=== PATIENT | female | born 1935 ===

== ENCOUNTER 2019-01-09 18:27 | Observation (INO) | payer MEDICARE ==
[2019-01-09 20:44] LABS: BASO % 0.6 % (0.0-2.0); EOS # 0.2 K/uL (0.0-0.7); EOS % 3.4 % (0.0-4.0); HEMOGLOBIN 11.6 g/dL (12.0-16.0); LYMPH # 1.2 K/uL (1.0-4.3); LYMPH % 17.8 % (20.0-40.0); MEAN CELL VOLUME 89.9 fl (81.0-99.0); MEAN CORPUSCULAR HGB CONC 33.3 g/dL (33.0-37.0); MEAN PLATELET VOLUME 8.1 fl (7.2-11.7); MONO # 0.7 K/uL (0.0-0.8); MONO % 10.5 % (0.0-10.0); NEUT # 4.7 K/uL (1.8-7.0); NEUT % 67.7 % (50.0-75.0); NRBC % 0.1 % (0.0-0.0); RBC 3.88 Mil/uL (3.80-5.20); RED CELL DISTRIBUTION WIDTH 13.1 % (11.5-14.5)
[2019-01-09 20:52] LABS: ALBUMIN 4.3 g/dL (3.5-5.0); ALT/SGPT 18 U/L (9-52); AST/SGOT 35 U/L (14-36); BLOOD UREA NITROGEN 31 mg/dl (7-17); CALCIUM 9.9 mg/dL (8.4-10.2); GFR NON-AFRICAN AMERICAN 53
[2019-01-09 21:00] LABS: INR 0.9; PROTHROMBIN TIME 10.1 Seconds (9.8-13.1)
[2019-01-09 21:03] LABS: PARTIAL THROMBOPLASTIN TIME 35.7 Seconds (25.6-37.1)
--- NOTE | 2019-01-09 21:04 | ED PDOC ---
HPI: Chest Pain Time Seen by Provider: 01/09/19 19:13 Chief Complaint (Nursing): Chest Pain Chief Complaint (Provider): Chest Pain History Per: Patient History/Exam Limitations: no limitations Onset/Duration Of Symptoms: Days (x1 day) Current Symptoms Are (Timing): Still Present Pain Scale Rating Of: 5 Additional Complaint(s): Patient is a 83 year old [place]oth[place] female with a past medical history of HTN and psoriasis, who presents to the emergency department complaining of chest pain, onset x1 day. Patient states that she has generalized chest pain with no vomiting, sweating, cough, fever or shortness of breath. Combat Control: Demetris Dorado Past Medical History Reviewed: Historical Data, Nursing Documentation, Vital Signs Vital Signs: Last Vital Signs Temp 97.7 F 01/09/19 18:30 Pulse 71 01/09/19 19:17 Resp 16 01/09/19 19:17 BP 131/72 01/09/19 19:17 Pulse Ox 100 01/09/19 19:17 - Medical History PMH: HTN, Hyperlipidemia Other PMH: psoriasis - Surgical History Surgical History: Appendectomy (1960s) - Family History Family History: States: Unknown Family Hx - Social History Current smoker - smoking cessation education provided: No Ex-Smoker (has not smoked in the last 12 months): No Alcohol: None Drugs: Denies - Home Medications Home Medications: Ambulatory Orders Medication Instructions Recorded Amlodipine/Valsartan [Exforge 1 tab PO DAILY 03/23/16 5-160 mg Tablet] Cholecalciferol (Vitamin D3) 2,000 unit PO DAILY 03/23/16 [Vitamin D3] Cyanocobalamin [Vitamin B12 1000 2 tab PO DAILY 03/23/16 mcg Tab] Etanercept [Enbrel] 50 mg SQ QWK 03/23/16 Folic Acid 1 tab PO TID 03/23/16 Methotrexate 1 tab PO QWK 03/23/16 Rosuvastatin Calcium [Crestor] 1 tab PO DAILY 03/23/16 metFORMIN [glucOPHAGE] 1 tab PO DAILY 03/23/16 - Allergies Allergies/Adverse Reactions: Allergies Allergy/AdvReac Type Severity Reaction Status Date / Time No Known Allergies Allergy Verified 01/09/19 18:33 Review of Systems ROS Statement: Except As Marked, All Systems Reviewed And Found Negative Constitutional: Negative for: Fever, Sweats Cardiovascular: Positive for: Chest Pain Respiratory: Negative for: Cough, Shortness of Breath Physical Exam - Reviewed Nursing Documentation Reviewed: Yes Vital Signs Reviewed: Yes - Physical Exam Appears: Positive for: Non-toxic, No Acute Distress Head Exam: Positive for: ATRAUMATIC, NORMOCEPHALIC Skin: Positive for: Normal Color, Warm, Dry Eye Exam: Positive for: Normal appearance, EOMI, PERRL ENT: Positive for: Normal ENT Inspection Neck: Positive for: Normal, Painless ROM, Supple Cardiovascular/Chest: Positive for: Regular Rate, Rhythm. Negative for: Murmur Respiratory: Positive for: Normal Breath Sounds. Negative for: Respiratory Distress Gastrointestinal/Abdominal: Positive for: Normal Exam, Soft. Negative for: Tenderness Back: Positive for: Normal Inspection. Negative for: L CVA Tenderness, R CVA Tenderness, Vertebral Tenderness Extremity: Positive for: Normal ROM. Negative for: Pedal Edema, Deformity Neurologic/Psych: Positive for: Alert, Oriented. Negative for: Motor/Sensory Deficits - Laboratory Results Result Diagrams: 01/09/19 19:55 01/09/19 19:55 Lab Results: PT 10.1 Seconds (9.8-13.1) 01/09/19 19:55 INR 0.9 01/09/19 19:55 Total Bilirubin 0.4 mg/dl (0.2-1.3) 01/09/19 19:55 AST 35 U/L (14-36) 01/09/19 19:55 ALT 18 U/L (9-52) 01/09/19 19:55 Alkaline Phosphatase 82 U/L (38-126) 01/09/19 19:55 Total Protein 8.5 G/DL (6.3-8.2) H 01/09/19 19:55 Albumin 4.3 g/dL (3.5-5.0) 01/09/19 19:55 Globulin 4.2 gm/dL (2.2-3.9) H 01/09/19 19:55 Albumin/Globulin Ratio 1.0 (1.0-2.1) 01/09/19 19:55 - ECG O2 Sat by Pulse Oximetry: 100 (RA) Pulse Ox Interpretation: Normal Medical Decision Making Medical Decision Making: Time: 183 Impression: 83 year old [place] female presenting with chest pain. Will order labs, EKG and chest xray Plan: --EKG --CMP --Troponin I --CBC with differential --PT --PT --Chest xray --Saline lock Time: 2131 --Labs and chest xray reviewed and revealed no clinically significant abnormalities. --Patient will be placed in chest pain observation as discussed with Dr. Villatoro. Scribe Attestation: Documented by Cash Kong, acting as a scribe for Kana De La Torre MD. Provider Scribe Attestation: All medical record entries made by the Scribe were at my direction and personally dictated by me. I have reviewed the chart and agree that the record accurately reflects my personal performance of the history, physical exam, medical decision making, and the department course for this patient. I have also personally directed, reviewed, and agree with the discharge instructions and disposition. Disposition - Clinical Impression Clinical Impression: Chest pain - Disposition Disposition Time: 21:30 Condition: FAIR
[2019-01-10 05:51] VITALS: RESP 18
--- NOTE | 2019-01-10 08:03 | CARD ---
APPROVED REPORT Date of service: 01/10/2019 EKG Measurement Heart [id number] <Conclusion> Normal sinus rhythm Low voltage QRS Borderline ECG
[2019-01-10] MEDS ORDERED: Enoxaparin 40 mg Syringe SC SCH (09:00)
[2019-01-10] MEDS ORDERED: Cholecalciferol 1,000 INTLU TAB PO SCH (09:00)
[2019-01-10 09:12] LABS: HEMOGLOBIN 10.7 g/dL (12.0-16.0); MEAN CELL VOLUME 89.8 fl (81.0-99.0); MEAN CORPUSCULAR HEMOGLOBIN 30.1 pg (27.0-31.0); MEAN CORPUSCULAR HGB CONC 33.5 g/dL (33.0-37.0); RBC 3.57 Mil/uL (3.80-5.20); RED CELL DISTRIBUTION WIDTH 12.9 % (11.5-14.5); WHITE BLOOD COUNT 6.2 K/uL (4.8-10.8)
[2019-01-10 09:35] LABS: LDL CHOLESTEROL 156 mg/dL (0-129)
[2019-01-10 10:13] LABS: ALB/GLOB RATIO 0.8 (1.0-2.1); ALBUMIN 3.3 g/dL (3.5-5.0); ALT/SGPT 6 U/L (9-52); AST/SGOT 32 U/L (14-36); BLOOD UREA NITROGEN 28 mg/dl (7-17); CALCIUM 9.5 mg/dL (8.4-10.2); GFR NON-AFRICAN AMERICAN > 60; HDL CHOLESTEROL 44 MG/DL (30-70)
--- NOTE | 2019-01-10 11:40 | RAD ---
Date of service: 01/09/2019 HISTORY: chest pain COMPARISON: No prior. FINDINGS: LUNGS: The lungs are well inflated and clear. PLEURA: No pleural effusions or pneumothorax. CARDIOVASCULAR: The heart is normal in size. There are aortic atherosclerotic calcifications present. OSSEOUS STRUCTURES: There an S-shaped scoliosis in the thoracolumbar spine. VISUALIZED UPPER ABDOMEN: Normal. OTHER FINDINGS: None. IMPRESSION: No active pulmonary disease.
[2019-01-10 15:56] VITALS: BP 96/53; PULSE 77; TEMP 98.6; O2SAT 94
--- NOTE | 2019-01-10 16:53 | CP.PCM.CON ---
Past Patient History - Infectious Disease Hx of Infectious Diseases: None - Past Medical History & Family History Past Medical History?: Yes - Past Social History Smoking Status: Never Smoked - CARDIAC Hx Cardiac Disorders: Yes Hx Hypercholesterolemia: Yes Hx Hypertension: Yes - PULMONARY Hx Respiratory Disorders: No - NEUROLOGICAL Hx Neurological Disorder: No - HEENT Hx HEENT Problems: No - RENAL Hx Chronic Kidney Disease: No - ENDOCRINE/METABOLIC Hx Endocrine Disorders: Yes Hx Diabetes Mellitus Type 2: Yes (not on any meds anymore) - HEMATOLOGICAL/ONCOLOGICAL Hx Blood Disorders: No - INTEGUMENTARY Hx Dermatological Problems: Yes Hx Psoriasis: Yes - MUSCULOSKELETAL/RHEUMATOLOGICAL Hx Musculoskeletal Disorders: No Hx Falls: No - GASTROINTESTINAL Hx Gastrointestinal Disorders: No - GENITOURINARY/GYNECOLOGICAL Hx Genitourinary Disorders: No - PSYCHIATRIC Hx Psychophysiologic Disorder: No Hx Substance Use: No - SURGICAL HISTORY Hx Surgeries: Yes Hx Appendectomy: Yes (1960s) Hx Thyroidectomy: Yes - ANESTHESIA Hx Anesthesia: Yes Hx Anesthesia Reactions: No Hx Malignant Hyperthermia: No Has any member of the family had a problem w/ anesthesia?: No Meds Allergies/Adverse Reactions: Allergies Allergy/AdvReac Type Severity Reaction Status Date / Time No Known Allergies Allergy Verified 01/09/19 18:33 - Medications Medications: Current Medications Amlodipine Besylate (Norvasc) 5 mg PO DAILY [facility] Last Admin: 01/10/19 09:38 Dose: 5 mg Atorvastatin Calcium (Lipitor) 10 mg PO DAILY [facility] Last Admin: 01/10/19 09:38 Dose: 10 mg Cholecalciferol (Vitamin D) 2,000 intlu PO DAILY [facility] Last Admin: 01/10/19 09:38 Dose: 2,000 intlu Cyanocobalamin (Vitamin B12 1000 Mcg Tab) 2,000 mcg PO DAILY [facility] Last Admin: 01/10/19 09:38 Dose: 2,000 mcg Enoxaparin Sodium (Lovenox) 40 mg SC DAILY [facility]; Protocol Last Admin: 01/10/19 09:38 Dose: 40 mg Losartan Potassium (Cozaar) 100 mg PO DAILY [facility] Last Admin: 01/10/19 09:38 Dose: 100 mg Results - Vital Signs Recent Vital Signs: Last Vital Signs Temp 98.6 F 01/10/19 15:54 Pulse 77 01/10/19 15:54 Resp 18 01/10/19 15:54 BP 96/53 L 01/10/19 15:54 Pulse Ox 94 L 01/10/19 15:54 - Labs Result Diagrams: 01/10/19 08:40 01/10/19 08:40 Labs: Laboratory Results - last 24 hr 01/09/19 01/09/19 01/09/19 19:55 19:55 19:55 WBC 7.0 RBC 3.88 Hgb 11.6 L Hct 34.9 MCV 89.9 D MCH 30.0 MCHC 33.3 RDW 13.1 Plt Count 353 D MPV 8.1 Neut % (Auto) 67.7 Lymph % (Auto) 17.8 L [place] % (Auto) 10.5 H Eos % (Auto) 3.4 Baso % (Auto) 0.6 Neut # (Auto) 4.7 Lymph # (Auto) 1.2 [place] # (Auto) 0.7 Eos # (Auto) 0.2 Baso # (Auto) 0.0 PT 10.1 INR 0.9 APTT 35.7 Sodium 139 Potassium 3.6 Chloride 97 L Carbon Dioxide 29 Anion Gap 17 BUN 31 H Creatinine 1.0 Est GFR ( Amer) > 60 Est GFR (Non-Af Amer) 53 Random Glucose 122 H Calcium 9.9 Total Bilirubin 0.4 AST 35 ALT 18 Alkaline Phosphatase 82 Troponin I < 0.0120 Total Protein 8.5 H Albumin 4.3 Globulin 4.2 H Albumin/Globulin Ratio 1.0 Triglycerides Cholesterol LDL Cholesterol Direct HDL Cholesterol Thyroxine (T4) TSH 3rd Generation 01/10/19 01/10/19 01/10/19 04:50 08:40 08:40 WBC 6.2 RBC 3.57 L Hgb 10.7 L Hct 32.0 L MCV 89.8 MCH 30.1 MCHC 33.5 RDW 12.9 Plt Count 324 MPV Neut % (Auto) Lymph % (Auto) [place] % (Auto) Eos % (Auto) Baso % (Auto) Neut # (Auto) Lymph # (Auto) [place] # (Auto) Eos # (Auto) Baso # (Auto) PT INR APTT Sodium 138 Potassium 4.3 Chloride 103 Carbon Dioxide 27 Anion Gap 12 BUN 28 H Creatinine 0.9 Est GFR ( Amer) > 60 Est GFR (Non-Af Amer) > 60 Random Glucose 101 Calcium 9.5 Total Bilirubin 0.3 AST 32 ALT 6 L D Alkaline Phosphatase 72 Troponin I < 0.0120 Total Protein 7.5 Albumin 3.3 L D Globulin 4.3 H Albumin/Globulin Ratio 0.8 L Triglycerides 84 Cholesterol 229 H LDL Cholesterol Direct 156 H HDL Cholesterol 44 Thyroxine (T4) 7.10 TSH 3rd Generation 6.63 H 01/10/19 12:40 WBC RBC Hgb Hct MCV MCH MCHC RDW Plt Count MPV Neut % (Auto) Lymph % (Auto) [place] % (Auto) Eos % (Auto) Baso % (Auto) Neut # (Auto) Lymph # (Auto) [place] # (Auto) Eos # (Auto) Baso # (Auto) PT INR APTT Sodium Potassium Chloride Carbon Dioxide Anion Gap BUN Creatinine Est GFR ( Amer) Est GFR (Non-Af Amer) Random Glucose Calcium Total Bilirubin AST ALT Alkaline Phosphatase Troponin I < 0.0120 Total Protein Albumin Globulin Albumin/Globulin Ratio Triglycerides Cholesterol LDL Cholesterol Direct HDL Cholesterol Thyroxine (T4) TSH 3rd Generation
--- NOTE | 2019-01-10 17:52 | CARD ---
APPROVED REPORT Date of service: 01/10/2019 EXAM: Two-dimensional and M-mode echocardiogram with Doppler and color Doppler. Other Information Quality : GoodRhythm : NSR INDICATION Chest Pain 2D DIMENSIONS IVSd1.16 (0.7-1.1cm)LVDd3.95 (3.9-5.9cm) LVOT Diameter1.79 (1.8-2.4cm)PWd0.89 (0.7-1.1cm) IVSs1.46 (0.8-1.2cm)LVDs2.03 (2.5-4.0cm) FS (%) 48.5 %PWs1.56 (0.8-1.2cm) M-Mode DIMENSIONS Left Atrium (MM)4.22 (2.5-4.0cm)IVSd1.16 (0.7-1.1cm) Aortic Root2.91 (2.2-3.7cm)LVDd4.58 (4.0-5.6cm) Aortic Cusp Exc.1.72 (1.5-2.0cm)PWd0.98 (0.7-1.1cm) IVSs1.62 cmFS (%) 55 % LVDs2.06 (2.0-3.8cm)PWs1.47 cm Aortic Valve AoV Peak Bmuggglj277.6cm/sAoV VTI31.3cmAO Peak GR.9mmHg LVOT Peak Rapytevd737.6cm/sLVOT VTI23.72cmAO Mean GR.5mmHg MEG (VMAX)1.50qh4WNP (VTI)1.26cm2 Mitral Valve MV E Zdblhoul20.0cm/sMV DECEL VLHX647pcCV A Ywbdtpxz37.4cm/s MV VYX41liL/A ratio0.8MVA (PHT)3.98cm2 TDI Lateral E' Peak V6.11cm/sMedial E' Peak V8.96cm/sE/Lateral E'12.4 E/Medial E'8.5 Tricuspid Valve TR Peak Rfbbkzrq355su/sRAP PIJOIOEE12seFsSV Peak Gr.25mmHg WTWZ32mbHf LEFT VENTRICLE The left ventricle is normal size. There is normal left ventricular wall thickness. The left ventricular systolic function is normal. The estimated ejection fraction is 55-60% No regional wall motion abnormalities noted.. Transmitral Doppler flow pattern is Grade I-abnormal relaxation pattern. No left ventricle thrombus noted on this study. There is no ventricular septal defect visualized. There is no left ventricular aneurysm. There is no mass noted in the left ventricle. RIGHT VENTRICLE The right ventricle is normal size. There is normal right ventricular wall thickness. The right ventricular systolic function is normal. ATRIA The left atrium is mildly dilated. The right atrium size is normal. The interatrial septum is intact with no evidence for an atrial septal defect. AORTIC VALVE The aortic valve is normal in structure. No aortic regurgitation is present. There is no aortic valvular stenosis. There is no aortic valvular vegetation. MITRAL VALVE The mitral valve is normal in structure. There is no evidence of mitral valve prolapse. There is no mitral valve stenosis. There is trace mitral valve regurgitation noted. TRICUSPID VALVE The tricuspid valve is normal in structure. There is mild tricuspid valve regurgitation noted. RVSP is calculated at 30 mm Hg. There is no tricuspid valve prolapse or vegetation. There is no tricuspid valve stenosis. PULMONIC VALVE The pulmonary valve is normal in structure. There is trace pulmonic valvular regurgitation. There is no pulmonic valvular stenosis. GREAT VESSELS The aortic root is normal in size. The ascending aorta is normal in size. The pulmonary artery is normal. The IVC is normal in size and collapses >50% with inspiration. PERICARDIAL EFFUSION There is no pericardial effusion. There is no pleural effusion. <Conclusion> The estimated ejection fraction is 55-60% Transmitral Doppler flow pattern is Grade I-abnormal relaxation pattern. The left atrium is mildly dilated. There is trace mitral valve regurgitation noted. There is mild tricuspid valve regurgitation noted. RVSP is calculated at 30 mm Hg.
--- NOTE | 2019-01-10 18:49 | CARD ---
APPROVED REPORT Date of service: 01/09/2019 EKG Measurement Heart [id number] <Conclusion> Normal sinus rhythm Normal Electrocardiogram
--- NOTE | 2019-01-11 02:15 | CP.PCM.HP ---
Past Patient History - Infectious Disease Hx of Infectious Diseases: None - Past Medical History & Family History Past Medical History?: Yes - Past Social History Smoking Status: Never Smoked - CARDIAC Hx Cardiac Disorders: Yes Hx Hypercholesterolemia: Yes Hx Hypertension: Yes - PULMONARY Hx Respiratory Disorders: No - NEUROLOGICAL Hx Neurological Disorder: No - HEENT Hx HEENT Problems: No - RENAL Hx Chronic Kidney Disease: No - ENDOCRINE/METABOLIC Hx Endocrine Disorders: Yes Hx Diabetes Mellitus Type 2: Yes (not on any meds anymore) - HEMATOLOGICAL/ONCOLOGICAL Hx Blood Disorders: No - INTEGUMENTARY Hx Dermatological Problems: Yes Hx Psoriasis: Yes - MUSCULOSKELETAL/RHEUMATOLOGICAL Hx Musculoskeletal Disorders: No Hx Falls: No - GASTROINTESTINAL Hx Gastrointestinal Disorders: No - GENITOURINARY/GYNECOLOGICAL Hx Genitourinary Disorders: No - PSYCHIATRIC Hx Psychophysiologic Disorder: No Hx Substance Use: No - SURGICAL HISTORY Hx Surgeries: Yes Hx Appendectomy: Yes (1960s) Hx Thyroidectomy: Yes - ANESTHESIA Hx Anesthesia: Yes Hx Anesthesia Reactions: No Hx Malignant Hyperthermia: No Has any member of the family had a problem w/ anesthesia?: No Meds Home Medications: Home Medication List Medication Instructions Recorded Confirmed Type Cholecalciferol [Vitamin D 1000 IU] 2,000 intlu PO DAILY tab 01/10/19 Rx Losartan [Cozaar] 100 mg PO DAILY tab 01/10/19 Rx Allergies/Adverse Reactions: Allergies Allergy/AdvReac Type Severity Reaction Status Date / Time No Known Allergies Allergy Verified 01/09/19 18:33 Results - Vital Signs Recent Vital Signs: Last Vital Signs Temp 98.6 F 01/10/19 15:54 Pulse 77 01/10/19 15:54 Resp 18 01/10/19 15:54 BP 96/53 L 01/10/19 15:54 Pulse Ox 94 L 01/10/19 15:54 - Labs Result Diagrams: 01/10/19 08:40 01/10/19 08:40 Labs: Laboratory Results - last 24 hr 01/10/19 01/10/19 01/10/19 04:50 08:40 08:40 WBC 6.2 RBC 3.57 L Hgb 10.7 L Hct 32.0 L MCV 89.8 MCH 30.1 MCHC 33.5 RDW 12.9 Plt Count 324 Sodium 138 Potassium 4.3 Chloride 103 Carbon Dioxide 27 Anion Gap 12 BUN 28 H Creatinine 0.9 Est GFR ( Amer) > 60 Est GFR (Non-Af Amer) > 60 Random Glucose 101 Calcium 9.5 Total Bilirubin 0.3 AST 32 ALT 6 L D Alkaline Phosphatase 72 Troponin I < 0.0120 Total Protein 7.5 Albumin 3.3 L D Globulin 4.3 H Albumin/Globulin Ratio 0.8 L Triglycerides 84 Cholesterol 229 H LDL Cholesterol Direct 156 H HDL Cholesterol 44 Thyroxine (T4) 7.10 TSH 3rd Generation 6.63 H 01/10/19 12:40 WBC RBC Hgb Hct MCV MCH MCHC RDW Plt Count Sodium Potassium Chloride Carbon Dioxide Anion Gap BUN Creatinine Est GFR ( Amer) Est GFR (Non-Af Amer) Random Glucose Calcium Total Bilirubin AST ALT Alkaline Phosphatase Troponin I < 0.0120 Total Protein Albumin Globulin Albumin/Globulin Ratio Triglycerides Cholesterol LDL Cholesterol Direct HDL Cholesterol Thyroxine (T4) TSH 3rd Generation
--- NOTE | 2019-01-11 02:16 | CP.PCM.DIS ---
Provider - Provider Date of Admission: 01/09/19 21:22 Attending physician: Marcelino Villatoro MD Consults: 01/10/19 06:17 Cardiology Consult Routine Comment: Consulting Provider: Mariaelena Anthony Consulting Physician: Mariaelena Anthony Reason for Consult: chest pain Time Spent in preparation of Discharge (in minutes): 20 Hospital Course - Lab Results Lab Results: Most Recent Lab Values WBC 6.2 K/uL (4.8-10.8) 01/10/19 08:40 RBC 3.57 Mil/uL (3.80-5.20) L 01/10/19 08:40 Hgb 10.7 g/dL (12.0-16.0) L 01/10/19 08:40 Hct 32.0 % (34.0-47.0) L 01/10/19 08:40 MCV 89.8 fl (81.0-99.0) 01/10/19 08:40 MCH 30.1 pg (27.0-31.0) 01/10/19 08:40 MCHC 33.5 g/dL (33.0-37.0) 01/10/19 08:40 RDW 12.9 % (11.5-14.5) 01/10/19 08:40 Plt Count 324 K/uL (130-400) 01/10/19 08:40 MPV 8.1 fl (7.2-11.7) 01/09/19 19:55 Neut % (Auto) 67.7 % (50.0-75.0) 01/09/19 19:55 Lymph % (Auto) 17.8 % (20.0-40.0) L 01/09/19 19:55 [place] % (Auto) 10.5 % (0.0-10.0) H 01/09/19 19:55 Eos % (Auto) 3.4 % (0.0-4.0) 01/09/19 19:55 Baso % (Auto) 0.6 % (0.0-2.0) 01/09/19 19:55 Neut # (Auto) 4.7 K/uL (1.8-7.0) 01/09/19 19:55 Lymph # (Auto) 1.2 K/uL (1.0-4.3) 01/09/19 19:55 [place] # (Auto) 0.7 K/uL (0.0-0.8) 01/09/19 19:55 Eos # (Auto) 0.2 K/uL (0.0-0.7) 01/09/19 19:55 Baso # (Auto) 0.0 K/uL (0.0-0.2) 01/09/19 19:55 PT 10.1 Seconds (9.8-13.1) 01/09/19 19:55 INR 0.9 01/09/19 19:55 APTT 35.7 Seconds (25.6-37.1) 01/09/19 19:55 Sodium 138 mmol/l (132-148) 01/10/19 08:40 Potassium 4.3 MMOL/L (3.6-5.0) 01/10/19 08:40 Chloride 103 mmol/L (98-107) 01/10/19 08:40 Carbon Dioxide 27 mmol/L (22-30) 01/10/19 08:40 Anion Gap 12 (10-20) 01/10/19 08:40 BUN 28 mg/dl (7-17) H 01/10/19 08:40 Creatinine 0.9 mg/dl (0.7-1.2) 01/10/19 08:40 Est GFR ( Amer) > 60 01/10/19 08:40 Est GFR (Non-Af Amer) > 60 01/10/19 08:40 Random Glucose 101 mg/dL (65-105) 01/10/19 08:40 Calcium 9.5 mg/dL (8.4-10.2) 01/10/19 08:40 Total Bilirubin 0.3 mg/dl (0.2-1.3) 01/10/19 08:40 AST 32 U/L (14-36) 01/10/19 08:40 ALT 6 U/L (9-52) L D 01/10/19 08:40 Alkaline Phosphatase 72 U/L (38-126) 01/10/19 08:40 Troponin I < 0.0120 ng/mL (0.00-0.120) 01/10/19 12:40 Total Protein 7.5 G/DL (6.3-8.2) 01/10/19 08:40 Albumin 3.3 g/dL (3.5-5.0) L D 01/10/19 08:40 Globulin 4.3 gm/dL (2.2-3.9) H 01/10/19 08:40 Albumin/Globulin Ratio 0.8 (1.0-2.1) L 01/10/19 08:40 Triglycerides 84 mg/DL (0-149) 01/10/19 08:40 Cholesterol 229 mg/dL (0-199) H 01/10/19 08:40 LDL Cholesterol Direct 156 mg/dL (0-129) H 01/10/19 08:40 HDL Cholesterol 44 MG/DL (30-70) 01/10/19 08:40 Thyroxine (T4) 7.10 ug/dl (5.5-11.0) 01/10/19 08:40 TSH 3rd Generation 6.63 mIU/ML (0.46-4.68) H 01/10/19 08:40 Discharge Exam - Head Exam Head Exam: ATRAUMATIC, NORMOCEPHALIC Discharge Plan - Follow Up Plan Condition: FAIR Disposition: HOME/ ROUTINE Instructions: Chest Pain (DC)
== END 2019-01-10 20:30 | disposition home or self-care (01) ==
LOC: H.ER 18:27 → H.ERHOLD 21:22 → H.TEL 01-10 01:49
PROVIDERS: ADMIT Internal Medicine; ATTEND Internal Medicine
DX: R07.9 Chest pain, unspecified (principal); I10 Essential (primary) hypertension; E11.9 Type 2 diabetes mellitus without complications; E78.5 Hyperlipidemia, unspecified; E78.00 Pure hypercholesterolemia, unspecified; L40.9 Psoriasis, unspecified; Z79.899 Other long term (current) drug therapy
CPT/HCPCS: 36415; 71045; 80053; 80061; 84436; 84443; 84484; 85025; 85027; 85610; 85730; 93005; 93306; 96372; 99285; G0378; J1650